=== PATIENT | male | born 1995 | race Two or more races ===

== ENCOUNTER 2020-04-17 01:44 | Emergency (ER) | payer SELFPAY ==
[~2020-04-17] VITALS: Ht 172.7 cm; Wt 84.8 kg
[~2020-04-17 01:44] MED LIST: HALOPERIDOL LACTATE 5 MG/ML INJ VIAL ONE; LORazepam 2MG/ML-1ML VIAL ONE; diphenhdrAMINE HCL 50 MG/1 ML VL ONE
[2020-04-17] MEDS ORDERED: LORazepam 2MG/ML-1ML VIAL IV ONE ×2 (02:00)
[2020-04-17] MEDS ORDERED: diphenhdrAMINE HCL 50 MG/1 ML VL IV ONE ×2 (02:00)
[2020-04-17] MEDS ORDERED: HALOPERIDOL LACTATE 5 MG/ML INJ VIAL IM ONE ×2 (02:00)
[2020-04-17 02:24] LABS: Albumin 4.2 g/dL (3.4-5.0); BUN/Creatinine Ratio 7.4; Calcium 9.5 mg/dL (8.5-10.1); Salicylate 3.3 mg/dL (2.8-20.0)
[2020-04-17 02:27] LABS: Basophils # (auto) 0.1 10 ^3/uL (0-0.2); Basophils % (auto) 0.4 % (0.0-2.0); Bilirubin, Total 0.5 mg/dL (0.2-1.0); Eosinophils # (auto) 0.2 10 ^3/uL (0-0.8); Eosinophils % (auto) 1.1 % (0.0-7.0); Hematocrit 50.3 % (41.0-53.0); INR 1.03 (0.9-1.15); Lymphocytes # (auto) 4.9 10 ^3/uL (0.4-5.4); Lymphocytes % (auto) 26.3 % (10.0-50.0); Mean Corpuscular Hemoglobin 30.6 pg (28.0-32.0); Mean Corpuscular Hgb Conc. 31.8 g/dL (32.0-36.0); Mean Corpuscular Volume 96.2 fL (80.0-100.0); Monocytes # (auto) 0.8 10 ^3/uL (0-1.3); Monocytes % (auto) 4.5 % (0.0-12.0); Neutrophils # (auto) 12.7 10 ^3/uL (1.6-8.6); Neutrophils % (auto) 67.7 % (37.0-80.0); Nucleated Red Blood Cells % 0.1 %; Partial Thromboplastin Time 28.5 sec (23.0-31.2); Platelet Count (auto) 323 10^3/uL (140-450); Red Blood Cells 5.23 10^6/uL (4.5-5.90); Red Cell Distribution Width 14.3 % (11.8-14.3); Total Protein 7.9 g/dL (6.4-8.2); White Blood Cell 18.7 10^3/uL (4.4-10.8)
[2020-04-17 02:32] LABS: Acetaminophen < 2.0 ug/mL (10-30)
[2020-04-17] MEDS ORDERED: SUCCINYLCHOLINE CHLORIDE 20 MG/ML 10ML VIAL IV ONE (03:15)
[2020-04-17] MEDS ORDERED: ETOMIDATE (2MG/ML) 20ML VIAL IV ONE (03:15)
[2020-04-17] MEDS ORDERED: PROPOFOL 100 ML IV ONE (03:17)
[2020-04-17] MEDS ORDERED: MIDAZOLAM HCL 5 MG/ML-1ML VIAL ONE (03:40)
[2020-04-17] MEDS ORDERED: MIDAZOLAM DRIP 50 mg/50mL 50 ML IV ONE (03:42)
[2020-04-17] MEDS ORDERED: SODIUM CHLORIDE 0.9% 1,000 ML IV ONE (03:45)
[2020-04-17] MEDS ORDERED: THIAMINE INJ 100 MG in SODIUM CHLORIDE 0.9% 1,000 ML IV ONE (03:45)
[2020-04-17] MEDS ORDERED: SODIUM BICARBONATE 50ML VIAL 100 ML in D5W 5% 1,000 ML IV ONE (04:00)
[2020-04-17] MEDS ORDERED: SODIUM BICARBONATE 8.4 % INJ 50ML VIAL IV ONE (04:00)
[2020-04-17 04:20] VITALS: BP 106/26
[2020-04-17 04:20] LABS: Amphetamine Screen, Urine NEGATIVE (NEGATIVE); Benzodiazephine Screen, Urine NEGATIVE (NEGATIVE); Cannabinoid Screen, Urine POSITIVE (NEGATIVE); Cocaine Screen, Urine POSITIVE (NEGATIVE); Opiate Scree,Urine NEGATIVE (NEGATIVE); Phencyclidine Screen, Urine NEGATIVE (NEGATIVE)
[2020-04-17 04:28] LABS: Barbiturate Scree,Urine NEGATIVE (NEGATIVE)
[2020-04-17] MEDS ORDERED: NOREPINEPHRINE 8 MG/250ML KIT 250 ML IV ONE (04:28)
[2020-04-17] MEDS ORDERED: MIDAZOLAM DRIP 50 mg/50mL 50 ML IV SCH (05:06)
[2020-04-17] MEDS ORDERED: PROPOFOL 100 ML IV SCH (05:06)
[2020-04-17] MEDS ORDERED: NOREPINEPHRINE 8 MG/250ML KIT 250 ML IV SCH (05:47)
[2020-04-17] MEDS ORDERED: SODIUM CHLORIDE 0.9% 2,000 ML IV ONE (06:00)
[2020-04-17 08:05] VITALS: BP 124/83
== END 2020-04-17 08:40 | disposition short-term general hospital (02) ==
LOC: ER 01:48 → EDBD 01:48 → ER 08:40
DX: S02.0XXA Fracture of vault of skull, initial encounter for closed fracture (principal); S02.40FA Zygomatic fracture, left side, initial encounter for closed fracture; M50.221 Other cervical disc displacement at C4-C5 level; M50.222 Other cervical disc displacement at C5-C6 level; S27.321A Contusion of lung, unilateral, initial encounter; E87.2 Acidosis; H21.02 Hyphema, left eye; W19.XXXA Unspecified fall, initial encounter; Y09 Assault by unspecified means; Y92.89 Other specified places as the place of occurrence of the external cause; Y99.8 Other external cause status
CPT/HCPCS: 31500; 36415; 36600; 70450; 70486; 71045; 72125; 80053; 80307; 80320; 80329; 82010; 82805; 85025; 85610; 85730; 87070; 87205; 96365; 96366; 96367; 96372; 96375; 96376; 99285; J0330; J1200; J1630; J2060; J2250; J2704; J7070; 94002